=== PATIENT | male | born 1975 ===

== ENCOUNTER 2018-02-03 19:10 | Emergency (ER) | payer OTHER ==
[~2018-02-03] VITALS: Ht 177.8 cm; Wt 97.6 kg
[2018-02-03 19:13] VITALS: Ht 177.8 cm; Wt 97.6 kg
--- NOTE | 2018-02-03 19:26 | EMERGENCY ROOM VISIT NOTE ---
History Report prepared by Dharmesh: Nelsy Hansen Under the Supervision of: Dr. Juan Antonio Abel M.D. First contact with patient: 19:15 Chief Complaint: ABDOMINAL PAIN Stated Complaint: ABDOMINAL PAIN History of Present Illness The patient is a 42 year old male who presents to the Emergency Room with complaints of intermittent abdominal pain for the past 3 months. Today the pain started around 1400 and has been constant since. He states the pain changes in intensity, sometimes it feels "severe" and sometimes it is more manageable. He rates his current discomfort as a 7/10 in severity. When the pain first started , the patient started taking Prilosec regularly and was taking it regularly for about 1 month, but he admits he backed off taking it and the pain has now returned. He denies any nausea, vomiting, diarrhea. He has experienced no fevers , chills or urinary symptoms. He does admit to a history of kidney stones but states this pain feels different from his typical kidney stone. The patient has never undergone a colonoscopy or endoscopy. Source of History: patient Onset: 1400 today Position: abdomen Symptom Intensity: 7/10 Timing: constant Modifying Factors (Relieving): other (Prilosec) Associated Symptoms: No fevers, No chills, No nausea, No vomiting, No diarrhea, No urinary symptoms Review of Systems See HPI for pertinent positives & negatives. A total of 10 systems reviewed and were otherwise negative. Past Medical & Surgical Medical Problems: (1) Kidney stones Social History Smoking Status: Never Smoker Alcohol Use: occasionally Drug Use: none Marital Status: Housing Status: lives with family Occupation Status: employed Current/Historical Medications Scheduled Hydrochlorothiazide (Hydrochlorothiazide), 12.5 MG PO DAILY Lisinopril (Zestril), 20 MG PO DAILY Omeprazole (Prilosec), 20 MG PO DAILY Ranitidine (Zantac), 150 MG PO BID Allergies Coded Allergies: No Known Allergies (Unverified , 02/14/12) Physical Exam Vital Signs Date Time Temp Pulse Resp B/P (MAP) Pulse Ox O2 Delivery O2 Flow Rate FiO2 02/04/18 00:31 36.6 81 18 150/80 100 Room Air 02/03/18 22:49 80 18 155/85 100 Room Air 02/03/18 21:14 85 18 156/90 100 Room Air 02/03/18 19:13 36.5 87 18 139/89 97 Room Air Physical Exam GENERAL: Patient is in no acute distress. HEENT: No acute trauma, normocephalic atraumatic, mucous membranes moist, no nasal congestion, no scleral icterus. NECK: No stridor, no adenopathy, no meningismus, trachea is midline. LUNGS: Clear to auscultation bilaterally, no wheeze, no rhonchi, breath sounds equal. HEART: Without murmurs gallops or rubs, regular rate and rhythm. ABDOMEN: Soft, mildly tender in the epigastrium, bowel sounds positive, no hernias, no peritonitis. EXTREMITIES: No cyanosis or edema, full range of motion of all the joints without pain or difficulty, no signs for acute trauma. NEUROLOGIC: Oriented x 3, no acute motor or sensory deficits, no focal weakness. SKIN: No rash, no jaundice, no diaphoresis. Medical Decision & Procedures ER Provider Diagnostic Interpretation: Radiology results as stated below per my review and radiologist interpretation: ABDOMEN AND PELVIS CT WITH IV AND ORAL CONTRAST CT DOSE: 614.66 mGy.cm HISTORY: Acute generalized abdominal pain ABDOMINAL PAIN/GI--?DIVERTICULITIS--GIVE PO AND IV CONTRAST TECHNIQUE: Multiaxial CT images of the abdomen and pelvis were performed following the use of intravenous and oral contrast. A dose lowering technique was utilized adhering to the principles of ALARA. COMPARISON STUDY: None. FINDINGS: Lung bases are clear. No pneumatosis or pneumoperitoneum. Imaged inferior cardiac chambers are unremarkable. The liver, spleen, gallbladder, pancreas and adrenal glands are within normal limits. Kidneys, ureters and bladder are within normal limits. Aorta and IVC appear unremarkable. Low attenuating ovoid left periaortic structure inferior to the level of the kidneys, image 210 series 3 measures 1.7 x 2.4 x 2.1 cm. Small sliding-type hiatal hernia. No bowel obstruction. There is mild dilation of the appendiceal tip, 8 mm without periappendiceal inflammatory stranding identified. There is air within the proximal appendiceal lumen. Small fat filled periumbilical hernia, diastases 1.0 cm. Soft tissues are unremarkable. Bones appear intact. Scattered subcentimeter sclerotic foci of the femoral heads and iliac bones are too small to characterize and may reflect bone islands. IMPRESSION: 1. Mild dilation of the appendiceal tip measuring 8 mm is noted with air in the proximal appendiceal lumen. No associated inflammatory stranding is identified. Correlate with clinical exam and patient history to exclude early developing acute appendicitis. 2. Circumscribed lobulated low attenuating retroperitoneal structure adjacent to the infrarenal abdominal aorta measuring up to 2.4 cm suggests pathologically enlarged lymph node of unknown etiology. Correlate with testicular exam to exclude testicular neoplasm. Follow-up is recommended. 3. No bowel obstruction. Electronically signed by: Sj Bowen M.D. 02/03/2018 10:07 PM US SCROTAL No evidence of testicular mass or torsion. 2 mm right epididymal cyst. Radiologist: Dr. Eugenie Jara MD Laboratory Results 02/03/18 19:53 Red Blood Count 5.57, Mean Corpuscular Volume 79.7, Mean Corpuscular Hemoglobin 27.5, Mean Corpuscular Hemoglobin Concent 34.5, Mean Platelet Volume 9.5, Neutrophils (%) (Auto) 70.2, Lymphocytes (%) (Auto) 22.6, Monocytes (%) (Auto) 5.9, Eosinophils (%) (Auto) 1.0, Basophils (%) (Auto) 0.1, Neutrophils # (Auto) 6.32, Lymphocytes # (Auto) 2.04, Monocytes # (Auto) 0.53, Eosinophils # (Auto) 0.09, Basophils # (Auto) 0.01 02/03/18 19:53 Test 02/03/18 19:53 White Blood Count 9.01 K/uL (4.8-10.8) Red Blood Count 5.57 M/uL (4.7-6.1) Hemoglobin 15.3 g/dL (14.0-18.0) Hematocrit 44.4 % (42-52) Mean Corpuscular Volume 79.7 fL (80-100) Mean Corpuscular Hemoglobin 27.5 pg (25-34) Mean Corpuscular Hemoglobin Concent 34.5 g/dl (32-36) Platelet Count 223 K/uL (130-400) Mean Platelet Volume 9.5 fL (7.4-10.4) Neutrophils (%) (Auto) 70.2 % Lymphocytes (%) (Auto) 22.6 % Monocytes (%) (Auto) 5.9 % Eosinophils (%) (Auto) 1.0 % Basophils (%) (Auto) 0.1 % Neutrophils # (Auto) 6.32 K/uL (1.4-6.5) Lymphocytes # (Auto) 2.04 K/uL (1.2-3.4) Monocytes # (Auto) 0.53 K/uL (0.11-0.59) Eosinophils # (Auto) 0.09 K/uL (0-0.5) Basophils # (Auto) 0.01 K/uL (0-0.2) RDW Standard Deviation 38.2 fL (36.4-46.3) RDW Coefficient of Variation 13.2 % (11.5-14.5) Immature Granulocyte % (Auto) 0.2 % Immature Granulocyte # (Auto) 0.02 K/uL (0.00-0.02) Anion Gap 4.0 mmol/L (3-11) Est Creatinine Clear Calc Drug Dose 112.8 ml/min Estimated GFR () 106.6 Estimated GFR (Non- 92.0 BUN/Creatinine Ratio 13.4 (10-20) Calcium Level 9.3 mg/dl (8.5-10.1) Total Bilirubin 0.5 mg/dl (0.2-1) Aspartate Amino Transf (AST/SGOT) 20 U/L (15-37) Alanine Aminotransferase (ALT/SGPT) 36 U/L (12-78) Alkaline Phosphatase 107 U/L (45-117) Total Protein 8.4 gm/dl (6.4-8.2) Albumin 4.1 gm/dl (3.4-5.0) Globulin 4.3 gm/dl (2.5-4.0) Albumin/Globulin Ratio 1.0 (0.9-2) Lipase 141 U/L (73-393) Laboratory results reviewed by me. Medications Administered Medications (Trade) Dose Ordered Sig/Kathy Route Start Time Stop Time Status Last Admin Dose Admin Al Hydroxide/Mg Hydroxide (Maalox Susp) 30 ml NOW STAT PO 02/03/18 22:11 02/03/18 22:12 DC 02/03/18 22:14 30 ML Ranitidine HCl (zANTac TAB) 150 mg NOW ONCE PO 02/04/18 00:30 02/04/18 00:31 DC 02/04/18 00:26 150 MG ECG Per My Interpretation Indication: abdominal pain Rate (beats per minute): 89 Rhythm: normal sinus Findings: no ectopy, other (No ST elevation, no PVC) ED Course 1915: The patient was evaluated in room B7. A complete history and physical exam was performed. 2132: I reevaluated the patient. He is resting comfortably and I updated him on his lab results. He verbalized complete understanding. 0: Nursing informed me the patient would like Maalox. I will put in orders. 2210: Maalox Susp 30 ml PO. 222: I discussed the patients case with Dr. Kan, [facility] Surgery. He does not think the patient needs surgical intervention and can go home with outpatient follow up. 2230: I reevaluated the patient. He is up to date on his results so far. I reexamined his abdomen and he has no tenderness. He is agreeable to a testicular ultrasound suggested by CT scan. 0010: I reevaluated the patient. He is feeling well and is ready to go home. I discussed his results and discharge instructions and he verbalized complete understanding and agreement. 0030: Zantac 150 mg PO. Medical Decision The differential diagnoses considered include gastritis or ulcer, duodenitis, pancreatitis, diverticulitis, appendicitis, biliary colic, UTI, intestinal colic and constipation. There is no leukocytosis or concerning anemia. No significant electrolyte abnormality, kidney failure, hepatitis or pancreatitis. Abdominal and pelvis CT shows an enlarged appendix but no evidence for acute appendicitis. There was a retroperitoneal lymph node noted for which follow-up was suggested. No bowel obstruction, no acute diverticulitis. Testicular ultrasound did not show a testicular mass. The ultrasound was done at the suggestion of the radiologist -it was felt that a testicular malignancy should be ruled out with the enlarged node seen on CT. Patient was given oral Zantac and oral Maalox, he is comfortable. I have examined his abdomen several times and I can elicit no real pain in the lower quadrants. The upper epigastric abdominal pain that was present earlier has resolved. I discussed the case with general surgery. No acute surgical intervention was warranted. The patient requires follow-up with his family doctor, surgery and likely GI. For now, he will be placed on Zantac and Prilosec. If things are worsening, if he has fever, he will return. The cause for the pain at this point is not completely clear, further workup and outpatient care is required. Medication Reconcilliation Current Medication List: was personally reviewed by me Blood Pressure Screening Patient's blood pressure: Elevated blood pressure Blood pressure disposition: Referred to PCP Consults Time Called: 2214 Consulting Physician: Dr. Kan, [facility] Surgery Returned Call: 2225 I discussed the patients case with Dr. Kan, [facility]. He does not think the patient needs surgical intervention and can go home with outpatient follow up. Impression Primary Impression: Epigastric abdominal pain Additional Impression: Lymph node enlargement Scribe Attestation The scribe's documentation has been prepared under my direction and personally reviewed by me in its entirety. I confirm that the note above accurately reflects all work, treatment, procedures, and medical decision making performed by me. Departure Information Dispostion Home / Self-Care Prescriptions Omeprazole (PRILOSEC) 20 Mg Capcr 20 MG PO DAILY for 90 Days, #90 CAP Prov: Juan Antonio Abel M.D. 02/04/18 Ranitidine (Zantac) 150 Mg Tab 150 MG PO BID for 14 Days, #28 TAB Prov: Juan Antonio Abel M.D. 02/04/18 Referrals Nishant Stearns MD (PCP) Patient Instructions My [facility] Additional Instructions zantac 2x per day for 1 week prilosec daily for next 3 months may use tylenol for pain talk with your doctor about a GI referral set up follow up appt with Dr. Kan you will need the enlarged abdominal lymph node followed return for fever, vomiting or worsening symptoms--especially pain in the right lower side Problem Qualifiers
[2018-02-03] MEDS ORDERED: OPTIRAY 320 IV PRN (19:30)
[2018-02-03 20:16] LABS: BASO % 0.1 %; BASO ABS # 0.01 K/uL (0-0.2); EOS ABS # 0.09 K/uL (0-0.5); HEMATOCRIT 44.4 % (42-52); HEMOGLOBIN 15.3 g/dL (14.0-18.0); IG# 0.02 K/uL (0.00-0.02); LYMPH % 22.6 %; LYMPH ABS # 2.04 K/uL (1.2-3.4); MEAN CELL VOLUME 79.7 fL (80-100); MEAN CORPUSCULAR HEMOGLOBIN 27.5 pg (25-34); MEAN CORPUSCULAR HGB CONC 34.5 g/dl (32-36); MEAN PLATELET VOLUME 9.5 fL (7.4-10.4); MONO % 5.9 %; MONO ABS # 0.53 K/uL (0.11-0.59); NEUT % 70.2 %; NEUT ABS # 6.32 K/uL (1.4-6.5); PLATELET COUNT 223 K/uL (130-400); RED CELL DISTRIBUTION WIDTH CV 13.2 % (11.5-14.5); RED CELL DISTRIBUTION WIDTH SD 38.2 fL (36.4-46.3); WHITE BLOOD COUNT 9.01 K/uL (4.8-10.8)
[2018-02-03 20:37] LABS: ALBUMIN 4.1 gm/dl (3.4-5.0); CALCIUM 9.3 mg/dl (8.5-10.1); CREATININE 1.01 mg/dl (0.60-1.40); POTASSIUM 3.4 mmol/L (3.5-5.1); TOTAL PROTEIN 8.4 gm/dl (6.4-8.2)
[2018-02-03] MEDS ORDERED: LISI-725 PO (21:42)
[2018-02-03] MEDS ORDERED: HYDR12.55 PO (21:43)
--- NOTE | 2018-02-03 22:09 | DIAGNOSTIC IMAGING REPORT ---
ABDOMEN AND PELVIS CT WITH IV AND ORAL CONTRAST CT DOSE: 614.66 mGy.cm HISTORY: Acute generalized abdominal pain ABDOMINAL PAIN/GI--?DIVERTICULITIS--GIVE PO AND IV CONTRAST TECHNIQUE: Multiaxial CT images of the abdomen and pelvis were performed following the use of intravenous and oral contrast. A dose lowering technique was utilized adhering to the principles of ALARA. COMPARISON STUDY: None. FINDINGS: Lung bases are clear. No pneumatosis or pneumoperitoneum. Imaged inferior cardiac chambers are unremarkable. The liver, spleen, gallbladder, pancreas and adrenal glands are within normal limits. Kidneys, ureters and bladder are within normal limits. Aorta and IVC appear unremarkable. Low attenuating ovoid left periaortic structure inferior to the level of the kidneys, image 210 series 3 measures 1.7 x 2.4 x 2.1 cm. Small sliding-type hiatal hernia. No bowel obstruction. There is mild dilation of the appendiceal tip, 8 mm without periappendiceal inflammatory stranding identified. There is air within the proximal appendiceal lumen. Small fat filled periumbilical hernia, diastases 1.0 cm. Soft tissues are unremarkable. Bones appear intact. Scattered subcentimeter sclerotic foci of the femoral heads and iliac bones are too small to characterize and may reflect bone islands. IMPRESSION: 1. Mild dilation of the appendiceal tip measuring 8 mm is noted with air in the proximal appendiceal lumen. No associated inflammatory stranding is identified. Correlate with clinical exam and patient history to exclude early developing acute appendicitis. 2. Circumscribed lobulated low attenuating retroperitoneal structure adjacent to the infrarenal abdominal aorta measuring up to 2.4 cm suggests pathologically enlarged lymph node of unknown etiology. Correlate with testicular exam to exclude testicular neoplasm. Follow-up is recommended. 3. No bowel obstruction. Electronically signed by: Sj Bowen M.D. 02/03/2018 10:07 PM Dictated Date/Time: 02/03/2018 9:57 PM
[2018-02-03] MEDS ORDERED: ALUMINUM/MAGNESIUM SUSP 30 ML UDC PO STA (22:11)
[2018-02-04] MEDS ORDERED: RANI150T85 PO (00:18)
[2018-02-04] MEDS ORDERED: PRLSR20 PO (00:18)
[2018-02-04] MEDS ORDERED: RANITIDINE HCL 150 MG TAB PO ONE (00:30)
[2018-02-04 00:31] VITALS: BP 150/80; PULSE 81; TEMP 36.6; O2SAT 100
--- NOTE | 2018-02-04 07:20 | DIAGNOSTIC IMAGING REPORT ---
ULTRASOUND TESTES AND SCROTUM CLINICAL HISTORY: Retroperitoneal mass identified by CT. COMPARISON STUDY: Abdominal CT dated 02/03/2018. TECHNIQUE: Real-time, grayscale, and color Doppler sonography of the testes and scrotum is performed. Images are reviewed in the transverse and longitudinal planes. FINDINGS: The testes are normal in size and homogeneous in echotexture. The right testis measures 3.7 x 1.9 x 2.6 cm and the left testis measures 3.7 x 2.0 x 2.4 cm. No intratesticular mass is seen. Testicular blood flow is normal and symmetric. Normal Doppler waveforms are identified in both testes. The epididymal heads are normal in appearance. The right epididymal head measures 0.9 cm in length and the left epididymal head measures 0.9 cm in length. A 2 mm right epididymal head cyst is incidentally noted. No varicocele or hydrocele is seen. IMPRESSION: Unremarkable sonographic appearance of the testes and scrotum. No testicular mass is identified. Electronically signed by: Juan Antonio Molina M.D. 02/04/2018 7:18 AM Dictated Date/Time: 02/04/2018 7:17 AM
== END 2018-02-04 00:32 | disposition home or self-care (01) ==
LOC: C.EDB 19:10
DX: R10.13 Epigastric pain (principal); R59.0 Localized enlarged lymph nodes; Z87.442 Personal history of urinary calculi; Z79.899 Other long term (current) drug therapy

== ENCOUNTER → 2018-04-29 | Outpatient (CLI) | payer OTHER ==
[~2018-04-29] MED LIST: HYDR12.55 PO; LISI-725 PO; OPTIRAY 320 IV PRN; PRLSR20 PO
--- NOTE | 2018-04-29 13:43 | DIAGNOSTIC IMAGING REPORT ---
CT SCAN OF THE ABDOMEN AND PELVIS WITH IV CONTRAST CLINICAL HISTORY: Follow-up abnormal CT scan. Retroperitoneal lesion. COMPARISON STUDY: Abdominal CT dated 02/03/2018. TECHNIQUE: Following the IV administration of 92 cc of Optiray 320, CT scan of the abdomen and pelvis is performed from the lung bases to the proximal femora. Images are reviewed in the axial, sagittal, and coronal planes. IV contrast was administered without complication. A dose lowering technique was utilized adhering to the principles of ALARA. CT DOSE: 580.63 mGy.cm FINDINGS: Lung bases: The heart is normal in size and without pericardial effusion. A calcified granuloma is noted in the lingula. The lung bases are otherwise clear. There is a tiny hiatal hernia. Liver: The contrast-enhanced liver is normal in size, contour, and attenuation. There is no intrahepatic biliary ductal dilatation. The hepatic veins and portal veins are patent. Gallbladder: Unremarkable. Spleen: Normal in size and attenuation. Pancreas: Unremarkable. Adrenal glands: Unremarkable. Kidneys: The contrast enhanced kidneys are normal in size and without hydronephrosis. The kidneys enhance symmetrically. Abdominal vasculature: The abdominal aorta is normal in course and caliber. Bowel: The small bowel and colon are normal in course and caliber. The appendix is well-visualized and normal. Peritoneum and retroperitoneum: There is a 2.5 x 2.3 x 2.4 cm lobulated water attenuation structure identified in the left periaortic region at the level of L2-L3. This is seen on image #186. There is no intraperitoneal free air or abdominal ascites. There is a small fat-containing umbilical hernia. Lymphadenopathy: None. Pelvic viscera: The bladder, prostate, and seminal vesicles are normal as visualized. Skeletal structures: No lytic or blastic lesions are seen. IMPRESSION: 1. There is a 2.5 cm lobulated water attenuation structure identified in the left periaortic region. This has not significantly changed from 02/03/2018, and the appearance is most typical for a lymphangioma or lymphatic malformation. The appearance is not consistent with lymphadenopathy and this lesion is of low suspicion. An additional one-year precautionary follow-up examination is recommended for reassessment. 2. There are no acute infectious or inflammatory findings in the abdomen or pelvis. Electronically signed by: Juan Antonio Molina M.D. 04/29/2018 1:42 PM Dictated Date/Time: 04/29/2018 1:25 PM
== END | disposition home or self-care (01) ==
LOC: C.CTS 12:40
PROVIDERS: ATTEND Surgery
DX: R93.5 Abnormal findings on diagnostic imaging of other abdominal regions, including retroperitoneum (principal)